=== PATIENT | female | born 1960 | race Caucasian/White ===

== ENCOUNTER 2020-08-17 23:27 | Inpatient (IN) | payer OTHER ==
[~2020-08-17] VITALS: Ht 162.6 cm; Wt 136.0 kg
[2020-08-17 23:28] VITALS: BP 126/95
[2020-08-17] MEDS ORDERED: MELOXICAM15 MG PO (23:46)
[2020-08-17] MEDS ORDERED: GABAPENTIN600 M1 PO (23:46)
[2020-08-17] MEDS ORDERED: GLUCOPHAGE1000 MG PO (23:46)
[2020-08-18] VITALS (74 sets, daily range): BP systolic 48–221; BP diastolic 32–113
[2020-08-18 00:08] LABS: BE -1.4 mmol/L (-2 to +3); PCO2 43.3 mmHg (35.0-45.0); pH 7.364 (7.340-7.450)
[2020-08-18 00:09] LABS: PO2 36.3 mmHg (75.0-100.0)
[2020-08-18 00:32] LABS: CALCIUM 8.7 mg/dL (8.5-10.1); CREATININE 1.1 mg/dL (0.6-1.3); POTASSIUM 3.7 mmol/L (3.5-5.1)
[2020-08-18 00:43] LABS: ALBUMIN 3.1 g/dL (3.4-5.0); MAGNESIUM 2.2 mg/dL (1.8-2.4); TOTAL BILIRUBIN 1.3 mg/dL (<0.1-1.0); TOTAL PROTEIN 7.4 g/dL (6.4-8.2)
[2020-08-18 01:30] LABS: BE -2.4 mmol/L (-2 to +3)
[2020-08-18 01:33] LABS: PCO2 73.4 mmHg (35.0-45.0); pH 7.199 (7.340-7.450)
[2020-08-18 01:40] LABS: ABSOLUTE BASOPHILS 0.1 thou/uL (0.0-0.2); ABSOLUTE EOSINOPHILS 0.1 thou/uL (0.0-0.7); ABSOLUTE LYMPHOCYTES 1.8 thou/uL (0.8-5.3); ABSOLUTE MONOCYTES 1.2 thou/uL (0.0-1.2); ABSOLUTE NEUTROPHILS 14.4 thou/uL (1.6-8.1); BASOPHILS 0.8 %; EOSINOPHILS 0.3 %; HEMATOCRIT 47.2 % (37.0-47.0); HEMOGLOBIN 15.4 gm/dL (12.0-15.0); LYMPHOCYTES 10.4 %; MCH 27.9 pg (26.0-34.0); MCHC 32.7 g/dL (28.0-37.0); MCV 85.3 fL (80.0-100.0); MPV 9.5 fl. (7.2-11.1); NUCLEATED RBCS 0 /100WBC; PLATELET COUNT* 202 thou/uL (150-400); POLYS 81.5 %; RBC 5.53 mil/uL (4.20-5.00); RDW-CV 16.3 % (10.5-14.5); WBC 17.7 thou/uL (4.0-11.0)
[2020-08-18 04:23] LABS: URINE BLOOD 2+ (Negative); URINE CLARITY CLEAR; URINE COLOR YELLOW; URINE GLUCOSE-RANDOM 1+ (Negative); URINE KETONES NEGATIVE (Negative); URINE LEUKOCYTES-REFLEX NEGATIVE (Negative); URINE NITRITE-REFLEX NEGATIVE (Negative); URINE PROTEIN 3+ (Negative); URINE SPECIFIC GRAVITY >= 1.030 (1.005-1.030)
[2020-08-18 04:37] LABS: URINE BILIRUBIN 1+ (Negative)
[2020-08-18 04:39] LABS: ICTOTEST (BILI CONFIRMATORY) Negative (Negative)
[2020-08-18 04:45] LABS: BE -10.8 mmol/L (-2 to +3)
[2020-08-18 04:47] LABS: PCO2 72.8 mmHg (35.0-45.0); PO2 42.7 mmHg (75.0-100.0); pH 7.074 (7.340-7.450)
[2020-08-18 05:27] LABS: BACTERIA-REFLEX 1-9 Few /HPF (None Seen); MUCUS 0-3 Light strn/LPF (None Seen); SQUAMOUS 0-3 Few /LPF (0-3); URINE RBC 3-10 Few /HPF (0-2); URINE WBC-REFLEX 0-5 Rare /HPF (0-5)
[2020-08-18 05:28] LABS: AMORPHOUS URATES Moderate /LPF (None Seen); COARSE GRANULAR CASTS 4-10 Moderate /LPF (None Seen); FINE GRANULAR CASTS 0-3 Few /LPF (None Seen); HYALINE CASTS 0-3 Few /LPF (None Seen)
[2020-08-18 05:36] LABS: INR 1.3; PROTIME 13.6 Seconds (9.20-11.50)
[2020-08-18 07:50] LABS: HEMATOCRIT 42.4 % (37.0-47.0); MCH 27.4 pg (26.0-34.0); MCHC 30.4 g/dL (28.0-37.0); MCV 90.2 fL (80.0-100.0); MPV 9.4 fl. (7.2-11.1); PLATELET COUNT* 152 thou/uL (150-400); RDW-CV 17.2 % (10.5-14.5)
[2020-08-18 08:12] LABS: CREATININE 1.6 mg/dL (0.6-1.3); MAGNESIUM 2.3 mg/dL (1.8-2.4); POTASSIUM 3.3 mmol/L (3.5-5.1)
[2020-08-18 08:13] LABS: CALCIUM 6.3 mg/dL (8.5-10.1)
[2020-08-18 08:19] LABS: INR 1.6; PROTIME 16.3 Seconds (9.20-11.50)
[2020-08-18 08:21] LABS: HEMOGLOBIN 12.9 gm/dL (12.0-15.0)
[2020-08-18 08:25] LABS: APTT > 139.0 Seconds (25.0-31.3)
[2020-08-18 09:27] LABS: ABSOLUTE LYMPHOCYTES 1.8 thou/uL (0.8-5.3); ABSOLUTE NEUTROPHILS 17.2 thou/uL (1.6-8.1); ANISOCYTOSIS 1+; OVALOCYTES 1+; PLATELET ESTIMATE ADEQUATE; POIKILOCYTOSIS 1+
--- NOTE | 2020-08-18 09:50 | EKG ---
[place] [address] ELECTROCARDIOGRAM REPORT Name: MARCELLO MORALES Room: [address] ADM IN M.R.#: [id number] Admission: 08/18/20 Attend Phys: Jasbir Benjamin Discharge: Date of : 56 Date of Service: 08/18/20 0138 Report #: [id number] THIS REPORT FOR: //name// [facility] ED Test Date: 2020-08-18 Test Time: 01:38:38 Pat Name: MARCELLO MORALES Department: Room: [address] Gender: F Lamination Spinner: MS : 1960 Requested By: Ellis Matta Order Number: [id number] Ronda MD: Gino Davis Measurements Intervals [place] Rate: 145 P: 65 KS: 146 QRS: -85 QRSD: 86 T: -7 QT: 276 QTc: 429 Interpretive Statements Sinus tachycardia Atrial premature complex Inferior infarct, old Consider anterior infarct No previous ECG available for comparison Electronically Signed On 08-18-2020 9:50:37 CDT by Gino Davis [email or web address] <ELECTRONICALLY SIGNED> By: Gino Davis MD, [facility] 08/18/20 0950 0138 0138 Gino Davis MD, [facility] /EPI
[2020-08-18 10:54] LABS: BE -16.4 mmol/L (-2 to +3); PCO2 47.1 mmHg (35.0-45.0); PO2 96.5 mmHg (75.0-100.0)
[2020-08-18 10:58] LABS: pH 7.073 (7.340-7.450)
[2020-08-18 11:01] LABS: ABSOLUTE BASOPHILS 0.1 thou/uL (0.0-0.2); ABSOLUTE LYMPHOCYTES 1.3 thou/uL (0.8-5.3); ABSOLUTE MONOCYTES 0.5 thou/uL (0.0-1.2); ABSOLUTE NEUTROPHILS 26.5 thou/uL (1.6-8.1); BASOPHILS 0.4 %; EOSINOPHILS 0.1 %; HEMATOCRIT 40.1 % (37.0-47.0); HEMOGLOBIN 12.5 gm/dL (12.0-15.0); LYMPHOCYTES 4.6 %; MCH 27.8 pg (26.0-34.0); MCHC 31.2 g/dL (28.0-37.0); MCV 89.2 fL (80.0-100.0); MONOCYTES 1.8 %; MPV 9.4 fl. (7.2-11.1); NUCLEATED RBCS 0 /100WBC; PLATELET COUNT* 169 thou/uL (150-400); POLYS 93.1 %; RDW-CV 17.6 % (10.5-14.5); WBC 28.4 thou/uL (4.0-11.0)
[2020-08-18 11:27] LABS: CALCIUM 6.7 mg/dL (8.5-10.1); CREATININE 1.8 mg/dL (0.6-1.3); MAGNESIUM 2.3 mg/dL (1.8-2.4); POTASSIUM 3.2 mmol/L (3.5-5.1); TOTAL BILIRUBIN 1.2 mg/dL (<0.1-1.0); TOTAL PROTEIN 5.4 g/dL (6.4-8.2)
--- NOTE | 2020-08-18 14:34 | CON ---
[address] [address] CONSULTATION Name: MARCELLO MORALES Room: [address] IN M.R.#: [id number] Admission: 08/18/20 Attend Phys: Noah Ontiveros Discharge: Date of : 56 Report #: [id number] THIS REPORT FOR: cc: Leslie Velez MD, Regina MD Pervez,Chinedu HOWARD ~ DOC #: [id number] Chinedu Garber MD DATE OF CONSULTATION: 08/18/2020 Consult has been requested by Dr. Benjamin. INDICATION FOR CONSULTATION: Acute hypoxemic respiratory failure secondary to COVID-19. HISTORY OF PRESENT ILLNESS: This is a 60-year-old female with past medical history that does include a history of diabetes. The patient does not have a history of smoking or cardiac or respiratory disease in the past, recently was diagnosed with COVID-19 as an outpatient. She did receive a Z-REN recently. She has not received any steroids prior to admission. The patient presented to the emergency room last night with worsening respiratory complaints. She did require to be endotracheally intubated for worsening respiratory failure. She has also had asystole; and therefore, she did receive CPR as well as IV epinephrine as well as a bicarbonate. The patient did have a CTA chest performed. This does show extensive pulmonary emboli. The patient has had a clot extraction performed by the Interventional Radiology service. At this time, the patient remains profoundly hypotensive, is on max doses of norepinephrine. In addition, is also receiving epinephrine to maintain blood pressure. She, however, is maintaining blood pressure. With the support, we have also been able to bring her O2 saturation up to the mid 90s; however, she remains at 100% FIO2 with 14 of PEEP at this time. The patient has been fluid resuscitated. She is in acute renal failure. Her baseline creatinine is 1.0, it did increase to 1.6 this morning. The patient, however, has been making some urine. The patient does have a central line as well as an arterial line in place. She is on the ventilator; and therefore, is unable to provide a further history or review of systems. PAST MEDICAL HISTORY: Diabetes. The patient is noted to be taking gabapentin as well as meloxicam at home as well. Indications are not known to me at this time. SOCIAL HISTORY: There is no known history of smoking, ethanol abuse, [place] [address] CONSULTATION Name: MARCELLO MORALES Room: [address]#: [id number] Admission: 08/18/20 Attend Phys: Noah Ontiveros Discharge: Date of : 56 Report #: [id number] ALLERGIES: CODEINE AND SULFONAMIDE ANTIBIOTICS. FAMILY HISTORY: No pertinent family history known at this time. CURRENT MEDICATIONS: List in [facility] reviewed. HOME MEDICATIONS: The list also in [facility] reviewed. PHYSICAL EXAMINATION: GENERAL: The patient at this time was not responsive to painful stimuli; however, she only recently had a propofol held. She did have cardiac arrest earlier, she had received 10 mg of Versed during the night. VITAL SIGNS: Had a pulse of 110 and a blood pressure of 105/60 on epinephrine as well as norepinephrine as above. O2 saturation was around 95%, but she was on 100% FIO2, 14 of PEEP, tidal volume 550, and AC rate of 22. Body mass index is elevated to 47. HEENT: Head is normocephalic and atraumatic. There is an endotracheal tube in good position. Has a central line also in place. NECK: Does not show raised JVP asymmetry, mass or lymph nodes. CHEST: Symmetrical expansion on inspection and palpation. On auscultation, breath sounds are bilaterally equal, but decreased. I do not hear any added sounds. HEART: Regular. There is no murmur. ABDOMEN: Soft and nontender. EXTREMITIES: Lower extremities showed evidence of chronic venous insufficiency. There are some varicose veins noted. There is only trace edema. SKIN: However, is dry and intact. NEUROLOGIC: She only had minimal response to pain at this time; however, she had recently received sedation as above. The patient was not on any sedation at the time of examination. IMAGING: The patient's chest x-rays as well as CT chest films as well as report are reviewed. There are extensive bilateral infiltrates consistent with COVID-19. I suspect that there is superimposed bacterial pneumonia as well. LABORATORY DATA: The patient's lab work, which does show primarily metabolic acidosis with a component of respiratory acidosis as well with marked hypoxemia in [facility] reviewed. The COVID-19 antigen in fact came back negative. We ordered a COVID-19 PCR, which is pending at this time. ASSESSMENT AND PLAN: 1. Acute hypoxemic respiratory failure secondary to COVID-19. For now, I decided to maintain current ventilator settings. Note that the patient's calculated ideal tidal volume is lower than currently set; however, she is [address] [address] CONSULTATION Name: MARCELLO MORALES Room: [address] IN [place]#: [id number] Admission: 08/18/20 Attend Phys: Noah Ontiveros Discharge: Date of : 56 Report #: [id number] markedly acidotic and peak airway pressures are not elevated; therefore, I decided not to change at this time. If sedation is needed, I would give her fentanyl first and then used Versed as a second agent if needed. We will repeat arterial blood gases at around 5:00 p.m. today and then we will reassess. 2. COVID-19. I would start her on the maximal amount of dexamethasone currently allowed per guidelines for severe hypoxemia, which will be 10 mg b.i.d. I also ordered one dose of Solu-Medrol now. We will go ahead and start her on remdesivir as well and give her a dose of Actemra. Considering massive pulmonary emboli, I did not order convalescent plasma at this time; however, I will review this further. 3. Pulmonary infiltrates. We will treat her with cefepime. She has already received a Z-Ren as an outpatient. Pending further evaluation, I will also go ahead and give her linezolid after obtaining a sputum culture as well as nasal swab for MRSA. 4. Severe shock/metabolic acidosis. Considering that her potassium is low, I did not bolus her with bicarb. However, I will go ahead and start a bicarb drip. We will repeat labs at 5:00 p.m. and then reassess. We will initially give bicarb and sterile water. We will switch this over to D5W once her glucoses are better. 5. Diabetes/hyperglycemia. I would expect her glucoses to rise further with the steroids. Recommend increasing insulin drip accordingly. Continue insulin. 6. A massive acute pulmonary emboli. The patient has had a clot extraction as performed by the IR service. She remains on IV heparin, which I would continue. We will titrate to PTT. We will obtain an echo. We will also obtain venous Dopplers. 7. Gastrointestinal prophylaxis. We will start Protonix. 8. Clostridium difficile prophylaxis. We will start Lactinex. 9. Elevated body mass index. Suspect she has underlying obstructive sleep apnea. Whenever she is extubated, we will plan on BiPAP. The patient is critically ill at this time. Total time spent providing critical care to this patient today is around 1 hour. Chinedu Garber MD AP/RAN <ELECTRONICALLY SIGNED> By: Chinedu Garber MD 08/18/20 1434 1031 1120Chinedu Garber MD /nt
--- NOTE | 2020-08-18 14:51 | 2DMMODE ---
[place] [address] 2 D/M-MODE ECHOCARDIOGRAM Name: MARCELLO MORALES Room: [address] IN [facility]#: [id number] Admission: 08/18/20 Attend Phys: Jasbir Benjamin Discharge: Date of : 56 Date of Service: 08/18/20 1451 Report #: [id number] THIS REPORT FOR: cc: Leslie Velez MD, Regina MD Liston,Terry Hartman MD [facility] ~ APPROVED REPORT Study performed: 08/18/2020 11:26:03 EXAM: Comprehensive 2D, Doppler, and color-flow Echocardiogram Patient Location: In-Patient Room #: [facility] Status: routine BSA: 2.23 HR: 100 bpm BP: 92/41 mmHg Rhythm: NSR Other Information Study Quality: Technically Difficult Indications Pulmonary Embolism 2D Dimensions IVSd: 9.30 (7-11mm) LVOT Diam: 20.71 (18-24mm) LVDd: 28.97 mm PWd: 9.75 (7-11mm) LVDs: 18.37 (25-40mm) Aortic Root: 31.98 mm Tricuspid Valve RAP Estimate: 5.00 mmHg TR Peak Gr.: 25.98 mmHg RVSP: 31.00 mmHg PA Pressure: 31.00 mmHg Left Ventricle The left ventricle is normal size. There is normal LV segmental wall motion. There is normal left ventricular wall thickness. Left ventricular systolic function is hyperdynamic. LVEF is >70%. This study is not technically sufficient to allow evaluation of the LV diastolic function. [address] [address] 2 D/M-MODE ECHOCARDIOGRAM Name: MARCELLO MORALES Room: [address] IN [facility]#: [id number] Admission: 08/18/20 Attend Phys: Jasbir Benjamin Discharge: Date of : 56 Date of Service: 08/18/20 1451 Report #: [id number] Right Ventricle Right ventricle is dilated. The right ventricular systolic function is normal. Atria The left atrium size is normal. Right atrium is dilated. Aortic Valve The aortic valve is normal in structure. Mild aortic regurgitation. There is no aortic valvular stenosis. Mitral Valve The mitral valve is normal in structure. There is no mitral valve regurgitation noted. No evidence of mitral valve stenosis. Tricuspid Valve The tricuspid valve is normal in structure. Trace tricuspid regurgitation. Mild pulmonary hypertension. Pulmonic Valve The pulmonary valve is normal in structure. There is no pulmonic valvular regurgitation. Great Vessels The aortic root is normal in size. IVC is dilated. Pericardium There is no pericardial effusion. <Conclusion> The left ventricle is normal size. There is normal left ventricular wall thickness. Left ventricular systolic function is hyperdynamic. LVEF is >70%. Right ventricle is dilated. Right atrium is dilated. Mild aortic regurgitation. Trace tricuspid regurgitation. Mild pulmonary hypertension. IVC is dilated. <ELECTRONICALLY SIGNED> By: Terry Elam MD, FACC 08/18/20 1451 1451 145 Terry Elam MD, FACC /INF
--- NOTE | 2020-08-18 16:39 | EKG ---
[place] [address] ELECTROCARDIOGRAM REPORT Name: JACKIE MORALESRICIA Room: [address] ADM IN M.R.#: [id number] Admission: 08/18/20 Attend Phys: Jasbir Benjamin Discharge: Date of : 56 Date of Service: 08/18/20 0652 Report #: [id number] THIS REPORT FOR: //name// [facility] Test Date: 2020-08-18 Test Time: 06:52:09 Pat Name: MARCELLO MORALES Department: Room: [address] Gender: F Lead Advisor: MS : 1960 Requested By: Jasbir Benjamin Order Number: [id number] Reading MD: Terry Elam Measurements Intervals [place] Rate: 162 P: AL: QRS: 262 QRSD: 96 T: 51 QT: 266 QTc: 437 Interpretive Statements Atrial fibrillation with rapid V-rate Inferior infarct, old Possible anterior infarct, age indeterminate Compared to ECG 08/18/2020 01:38:38 Sinus tachycardia no longer present Atrial premature complex(es) no longer present Myocardial infarct finding still present Electronically Signed On 08-18-2020 16:39:11 CDT by Terry Elam [email or web address] <ELECTRONICALLY SIGNED> By: Terry Elam MD, [facility] 08/18/20 1639 0652 Terry Elam MD, [facility] /EPI
[2020-08-18 17:29] LABS: BE -3.7 mmol/L (-2 to +3); PCO2 37.8 mmHg (35.0-45.0); PO2 107.6 mmHg (75.0-100.0); pH 7.366 (7.340-7.450)
[2020-08-18 17:38] LABS: CALCIUM 6.8 mg/dL (8.5-10.1); CREATININE 1.9 mg/dL (0.6-1.3); MAGNESIUM 1.6 mg/dL (1.8-2.4); POTASSIUM 3.1 mmol/L (3.5-5.1)
[2020-08-18 21:11] LABS: BE 2.3 mmol/L (-2 to +3); PCO2 42.2 mmHg (35.0-45.0); pH 7.424 (7.340-7.450)
[2020-08-18 21:14] LABS: PO2 138.8 mmHg (75.0-100.0)
[2020-08-19] VITALS (66 sets, daily range): BP systolic 78–170; BP diastolic 39–89
[2020-08-19 02:26] LABS: ABSOLUTE LYMPHOCYTES 1.1 thou/uL (0.8-5.3); ABSOLUTE MONOCYTES 0.3 thou/uL (0.0-1.2); ABSOLUTE NEUTROPHILS 17.3 thou/uL (1.6-8.1); BASOPHILS 0.2 %; EOSINOPHILS 0.1 %; HEMATOCRIT 29.6 % (37.0-47.0); LYMPHOCYTES 5.7 %; MCH 28.2 pg (26.0-34.0); MCHC 33.8 g/dL (28.0-37.0); MONOCYTES 1.6 %; MPV 9.1 fl. (7.2-11.1); NUCLEATED RBCS 0 /100WBC; PLATELET COUNT* 110 thou/uL (150-400); POLYS 92.4 %; RBC 3.55 mil/uL (4.20-5.00); RDW-CV 15.6 % (10.5-14.5); WBC 18.7 thou/uL (4.0-11.0)
[2020-08-19 02:28] LABS: MCV 83.4 fL (80.0-100.0)
[2020-08-19 02:43] LABS: CALCIUM 6.5 mg/dL (8.5-10.1); MAGNESIUM 1.7 mg/dL (1.8-2.4); POTASSIUM 3.4 mmol/L (3.5-5.1); TOTAL BILIRUBIN 1.2 mg/dL (<0.1-1.0); TOTAL PROTEIN 5.6 g/dL (6.4-8.2)
[2020-08-19 02:53] LABS: BE 2.8 mmol/L (-2 to +3); PCO2 46.3 mmHg (35.0-45.0); pH 7.401 (7.340-7.450)
[2020-08-19 03:02] LABS: PO2 53.6 mmHg (75.0-100.0)
[2020-08-19 09:14] LABS: BE 0.4 mmol/L (-2 to +3); PCO2 44.2 mmHg (35.0-45.0); PO2 118.9 mmHg (75.0-100.0); pH 7.382 (7.340-7.450)
[2020-08-19 15:29] LABS: CALCIUM 6.2 mg/dL (8.5-10.1); CREATININE 2.2 mg/dL (0.6-1.3); MAGNESIUM 2.3 mg/dL (1.8-2.4); PHOSPHORUS* 3.6 mg/dL (2.5-4.9); POTASSIUM 3.8 mmol/L (3.5-5.1)
[2020-08-20] VITALS (34 sets, daily range): BP systolic 82–115; BP diastolic 43–64
[2020-08-20 05:25] LABS: ABSOLUTE LYMPHOCYTES 0.6 thou/uL (0.8-5.3); ABSOLUTE NEUTROPHILS 27.7 thou/uL (1.6-8.1); BASOPHILS 0.1 %; HEMATOCRIT 29.8 % (37.0-47.0); HEMOGLOBIN 9.9 gm/dL (12.0-15.0); LYMPHOCYTES 1.9 %; MCHC 33.1 g/dL (28.0-37.0); MCV 84.8 fL (80.0-100.0); MONOCYTES 3.6 %; MPV 9.9 fl. (7.2-11.1); NUCLEATED RBCS 0 /100WBC; PLATELET COUNT* 138 thou/uL (150-400); POLYS 94.4 %; RBC 3.52 mil/uL (4.20-5.00); RDW-CV 16.6 % (10.5-14.5); WBC 29.4 thou/uL (4.0-11.0)
[2020-08-20 05:40] LABS: PHOSPHORUS* 3.4 mg/dL (2.5-4.9)
[2020-08-20 05:43] LABS: ALBUMIN 2.9 g/dL (3.4-5.0); CALCIUM 6.4 mg/dL (8.5-10.1); CREATININE 2.6 mg/dL (0.6-1.3); MAGNESIUM 2.3 mg/dL (1.8-2.4); POTASSIUM 3.6 mmol/L (3.5-5.1); TOTAL BILIRUBIN 0.8 mg/dL (<0.1-1.0); TOTAL PROTEIN 5.2 g/dL (6.4-8.2)
[2020-08-20 08:06] LABS: BE -2.1 mmol/L (-2 to +3); PO2 106.7 mmHg (75.0-100.0)
[2020-08-20 08:09] LABS: PCO2 55.1 mmHg (35.0-45.0); pH 7.278 (7.340-7.450)
[2020-08-20 17:14] LABS: BE -2.4 mmol/L (-2 to +3); PCO2 46.6 mmHg (35.0-45.0); PO2 88.4 mmHg (75.0-100.0); pH 7.325 (7.340-7.450)
[2020-08-20 18:23] LABS: CALCIUM 6.8 mg/dL (8.5-10.1); CREATININE 2.8 mg/dL (0.6-1.3); MAGNESIUM 2.2 mg/dL (1.8-2.4); POTASSIUM 3.2 mmol/L (3.5-5.1)
[2020-08-21] VITALS (93 sets, daily range): BP systolic 79–138; BP diastolic 32–62
[2020-08-21 04:25] LABS: CALCIUM 7.3 mg/dL (8.5-10.1); POTASSIUM 4.1 mmol/L (3.5-5.1)
--- NOTE | 2020-08-21 12:33 | CON ---
[address] [address] CONSULTATION Name: MARCELLO MORALES Room: [address] IN M.R.#: [id number] Admission: 08/18/20 Attend Phys: Noah Ontiveros Discharge: Date of : 56 Report #: [id number] THIS REPORT FOR: cc: Leslie Velez MD, Regina MD Liston, Michael J. MD [facility] ~ DOC #: [id number] cc: MD Terry Buckner MD DATE OF CONSULTATION: 08/18/2020 CARDIOLOGY CONSULT INDICATION: Respiratory failure with respiratory and cardiac arrest secondary to massive pulmonary emboli. HISTORY OF PRESENT ILLNESS: The patient is a 60-year-old white female who presented to the Emergency Room in the early hours of this morning with acute onset shortness of breath. The patient was noted on initial evaluation to be cyanotic with O2 saturations in the 50s. The patient denied any chest pain or other pain, but noted profound shortness of breath. She did report a history of COVID-19 infection last week. The patient's respiratory status continued to deteriorate and her course was fairly tenuous with episodes of acute desaturation followed by asystole that responded to ACLS protocol. She had a brief episode of rapid rate atrial fibrillation that resolved throughout the resuscitative process. Her course dramatically improved after she was taken to the IR lab and underwent embolectomy. CTA showed saddle and bilateral pulmonary emboli. At the time of my evaluation, the patient is intubated and sedated in the Intensive Care Unit. She appears hemodynamically stable, although she is on a low dose of Levophed. PAST MEDICAL HISTORY: From review of the chart, significant for type 2 diabetes mellitus, recent COVID-19 infection, history of lymphedema. MEDICAL ALLERGIES: INCLUDE ADHESIVES, CODEINE, MORPHINE, SILVER SULFADIAZINE AND SULFA. HOME MEDICATIONS: Include metformin 1000 mg p.o. b.i.d., gabapentin 300 mg p.o. t.i.d., meloxicam 1 tablet daily. FAMILY HISTORY: Noncontributory per the chart. SOCIAL HISTORY: The patient is a lifelong nonsmoker and [place] [address] CONSULTATION Name: MARCELLO MORALES Room: [address]#: [id number] Admission: 08/18/20 Attend Phys: Noah Ontiveros Discharge: Date of : 56 Report #: [id number] REVIEW OF SYSTEMS: Not obtainable at this time. PHYSICAL EXAMINATION: VITAL SIGNS: Stable. Blood pressure is 117/66, pulse is 102 and regular. GENERAL: This is a moderately obese white female who is intubated and sedated. HEENT: Head is normocephalic, atraumatic. NECK: Shows no obvious jugular venous distention. CHEST: Clear anteriorly. CARDIAC: Reveals a regular rhythm, slightly tachycardic without gallop or murmur. ABDOMEN: Protuberant, but soft. Bowel sounds present. EXTREMITIES: Show no significant edema at this time. SKIN: Dry. LABORATORY DATA: Labs are reviewed. Sodium 140, potassium 3.1, chloride 101, bicarb 21, BUN 21, creatinine 1.9, serum glucose 382. Troponin in this setting was 0.69 and 1.98. NT-proBNP 1849. White blood cell count 28.4, hemoglobin 12.5, platelet count 169. DIAGNOSTIC DATA: Chest x-ray on arrival showed diffuse interstitial opacities throughout all segments of both lungs consistent with atypical pneumonia, possible volume overload. Initial CTA of the chest showed extensive bilateral pulmonary emboli and saddle embolus. There was right heart enlargement noted. IMPRESSION AND RECOMMENDATIONS: 1. Massive pulmonary emboli. The patient is status post embolectomy in the interventional radiology lab with marked improvement. She is on a heparin drip at present. We will need to transition to long-term oral anticoagulant when she is able. Echocardiogram today showed mild right-sided chamber enlargement and hbqnbx-vf-gctfbzkopgbv left ventricular systolic function. 2. Elevated troponin consistent with type 2 myocardial infarction due to strain from hypoxemia and pulmonary emboli. May consider outpatient workup. At this point, the patient appears hemodynamically stable from a cardiac standpoint. 3. Type 2 diabetes mellitus per hospitalist. 4. Recent COVID-19 infection. The patient is in isolation. 5. Elevated NT-proBNP significant for heart strain and acute on chronic diastolic heart failure secondary to heart strain from massive pulmonary emboli. She would improve with embolectomy. 6. COVID-19, possible pneumonia. The patient is being followed by Pulmonology. She has been started on antiviral medication. MD TORRI Fatima/CONSTANCE [address] [address] CONSULTATION Name: MARCELLO MORALES Room: [address] IN [place].#: [id number] Admission: 08/18/20 Attend Phys: Noah Ontiveros Discharge: Date of : 56 Report #: [id number] <ELECTRONICALLY SIGNED> By: Terry Elam MD, FACC 08/21/20 1233 1701 [id number] Elam MD, FACC /nt
[2020-08-21 13:05] LABS: ALBUMIN 3.1 g/dL (3.4-5.0); DIRECT BILIRUBIN 0.5 mg/dL (<0.1-0.3); TOTAL PROTEIN 5.6 g/dL (6.4-8.2)
[2020-08-22] VITALS (26 sets, daily range): BP systolic 86–129; BP diastolic 32–55
[2020-08-22 02:08] LABS: GLYCOHEMOGLOBIN (HGB A1C) 7.4 % (4.8-5.6)
--- NOTE | 2020-08-30 19:44 | CON ---
[address] [address] CONSULTATION Name: MARCELLO MORALES Room: [address] IN M.R.#: [id number] Admission: 08/18/20 Attend Phys: Noah Ontiveros Discharge: 08/21/20 Date of : 56 Report #: [id number] THIS REPORT FOR: cc: Leslie Velez MD, Regina MD Khosla,Robin Pat MD ~ DOC #: [id number] Robin Rehman MD DATE OF CONSULTATION: 08/20/2020 HISTORY OF PRESENT ILLNESS: This is a 60-year-old female patient who was seen by me for hypoxic encephalopathy. I had talked to the day nurse and subsequently I talked to Dr. Matta. Subsequently, I talked to the evening nurse. I called the patient's family and multiple family members came on the line and I talked to them. Talking to the nurses determined that the patient is not on any sedation. She is not responsive. She does not respond to pain. This happened after a cardiac arrest. REVIEW OF SYSTEMS: A 14-point review of system was carried out. This patient has a history of being COVID positive. She had a massive pulmonary embolus. She has a recent COVID infection and a possible pneumonia. She has a history of diabetes. This was a relevant 14-point review of systems. She has a history of lymphedema. PAST MEDICAL HISTORY: Positive for being COVID positive. FAMILY HISTORY: Unremarkable. SOCIAL HISTORY: As I understand from the record, she does not smoke. PHYSICAL EXAMINATION: Her examination is pretty limited. She did not respond to the pain. Her pupils are fixed and dilated. She did not have any doll's eye movement. She does not have any reflexes, but she does have upgoing plantar. That is present on both sides. CT scan of the head was reviewed. CT scan of the head showed massive edema. 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 The prognosis for this patient is extremely guarded. [place] [address] CONSULTATION Name: ANDREW,MARCELLO Room: [address] IN [facility].#: [id number] Admission: 08/18/20 Attend Phys: Noah Ontiveros Discharge: 08/21/20 Date of : 56 Report #: [id number] with the family, but family wants to continue the supportive care. I told them that we can try to evaluate for the brain and they want to do that and they want to continue with aggressive care at the moment in spite of the patient's CT scan results. I discussed with them that I will order a brain flow study to see if there is any flow and if there is none, then we can do the clinical evaluation for the brain evaluation. That is what they want to do and we will do that. Dr. Carlisle will follow up this patient with you from tomorrow for neurology care. More than 50 minutes of time was spent taking care of this patient and majority was spent counseling, coordinating, talking to other health healthcare specialist and reviewing the patient's images. Thank you very much for this referral and if you have any questions, please feel free to contact me. MD YOANA Cuellar/TUNG <ELECTRONICALLY SIGNED> By: Robin Rehman MD 08/30/20 1944 1957 [id number] Rehman MD /tali
== END 2020-08-21 12:24 | disposition short-term general hospital (02) | DRG 853 ==
LOC: M.ERS 23:27 → M.ICU 08-18 02:53 → M.TBA-ER 08-18 02:53 → M.ICU 08-18 02:56
PROVIDERS: Emergency Medicine; Internal Medicine; Internal Medicine Critical Care Medicine; ADMIT Internal Medicine; ATTEND Internal Medicine
PROC: 5A12012 Performance of Cardiac Output, Single, Manual (ICD-10-PCS; principal; 2020-08-18)
PROC: 5A1955Z Respiratory Ventilation, Greater than 96 Consecutive Hours (ICD-10-PCS; principal; 2020-08-18)
PROC: 0BH17EZ Insertion of Endotracheal Airway into Trachea, Via Natural or Artificial Opening (ICD-10-PCS; principal; 2020-08-18)
PROC: XW033H5 Introduction of Tocilizumab into Peripheral Vein, Percutaneous Approach, New Technology Group 5 (ICD-10-PCS; principal; 2020-08-18)
PROC: XW033E5 Introduction of Remdesivir Anti-infective into Peripheral Vein, Percutaneous Approach, New Technology Group 5 (ICD-10-PCS; principal; 2020-08-18)
PROC: 02HV33Z Insertion of Infusion Device into Superior Vena Cava, Percutaneous Approach (ICD-10-PCS; principal; 2020-08-18)
PROC: 02CQ3ZZ Extirpation of Matter from Right Pulmonary Artery, Percutaneous Approach (ICD-10-PCS; 2020-08-19)
PROC: B31S1ZZ Fluoroscopy of Right Pulmonary Artery using Low Osmolar Contrast (ICD-10-PCS; 2020-08-19)
PROC: B51B1ZZ Fluoroscopy of Right Lower Extremity Veins using Low Osmolar Contrast (ICD-10-PCS; 2020-08-19)
PROC: B31T1ZZ Fluoroscopy of Left Pulmonary Artery using Low Osmolar Contrast (ICD-10-PCS; 2020-08-19)
PROC: 02CR3ZZ Extirpation of Matter from Left Pulmonary Artery, Percutaneous Approach (ICD-10-PCS; 2020-08-19)
DX: A41.89 Other specified sepsis (principal); U07.1 COVID-19; J96.01 Acute respiratory failure with hypoxia; J12.82 Pneumonia due to coronavirus disease 2019; I26.94 Multiple subsegmental thrombotic pulmonary emboli without acute cor pulmonale; G93.6 Cerebral edema; I46.8 Cardiac arrest due to other underlying condition; R57.9 Shock, unspecified; N17.9 Acute kidney failure, unspecified; E87.2 Acidosis; G93.1 Anoxic brain damage, not elsewhere classified; R04.2 Hemoptysis; E87.6 Hypokalemia; F41.9 Anxiety disorder, unspecified; J31.0 Chronic rhinitis; K52.9 Noninfective gastroenteritis and colitis, unspecified; E11.65 Type 2 diabetes mellitus with hyperglycemia; I89.0 Lymphedema, not elsewhere classified; E86.0 Dehydration; I48.91 Unspecified atrial fibrillation; R13.10 Dysphagia, unspecified; Z51.5 Encounter for palliative care; Z79.84 Long term (current) use of oral hypoglycemic drugs; Z79.899 Other long term (current) drug therapy; Z88.5 Allergy status to narcotic agent; Z88.2 Allergy status to sulfonamides; Z88.8 Allergy status to other drugs, medicaments and biological substances